=== PATIENT | female | born 1940 | race Caucasian/White ===

== ENCOUNTER → 2016-09-29 | Outpatient (CLI) | payer OTHER, BC ==
[~2016-09-29] MED LIST: AMR2 PO; BIOTCAP2 PO; CHOL100010 PO; CMD5 PO; COEN1CAP PO; CYAN100020 PO; ENOX80IN SQ; FIBER PO; LABE1TAB28 PO; MAGN400T6 PO; MELO15TA4 PO; MOME50SP5; PRAV80TA2 PO; SITA50TA5 PO
--- NOTE | 2016-09-29 16:16 | MAMMOGRAPHY REPORT ---
BILATERAL DIGITAL SCREENING MAMMOGRAM WITH CAD: 09/29/2016 CLINICAL HISTORY: Routine screening examination. TECHNIQUE: Bilateral CC, MLO and repeat right MLO views were obtained. Current study was also evalua marv with a Computer Aided Detection (CAD) system. COMPARISON: Comparison is made to exams dated: 09/27/2015 mammogram, 09/25/2014 mammogram, 09/22/2013 juanjo mogram, 09/21/2012 mammogram, 09/18/2011 mammogram, and 09/16/2010 mammogram - [facility]. BREAST COMPOSITION: There are scattered areas of fibroglandular density in both breasts. FINDINGS: The parenchymal pattern is similar to prior exams. There are scattered benign coarse calci fications. Moderate vascular calcification including numerous tiny calcified vessels. No new suspic ious mass, architectural distortion or cluster of suspicious microcalcifications is seen. IMPRESSION: ACR BI-RADS CATEGORY 1: NEGATIVE There is no mammographic evidence of malignancy. A 1 year screening mammogram is recommended. The pa tient will receive written notification of the results. Approximately 10% of breast cancers are not detected with mammography. A negative mammographic report should not delay biopsy if a clinically suggestive mass is present. Alyce Posadas M.D. ay/:09/29/2016 14:18:50 Contact Center Agent: Silva ALBA(Radha)(M), [facility] letter sent: Normal 1/2 BI-RADS Code: ACR BI-RADS Category 1: Negative
== END | disposition home or self-care (01) ==
LOC: C.MAMM 09:55
PROVIDERS: ATTEND Obstetrics & Gynecology
DX: Z12.31 Encounter for screening mammogram for malignant neoplasm of breast (principal)

== ENCOUNTER → 2016-10-20 | Outpatient (CLI) | payer OTHER, BC ==
[2016-10-20 17:24] LABS: BLOOD UREA NITROGEN 20 mg/dl (7-18); BUN/CREATININE RATIO 16.6 (10-20)
== END | disposition home or self-care (01) ==
LOC: C.LABBC 15:10
PROVIDERS: ATTEND Family Medicine
DX: Z01.812 Encounter for preprocedural laboratory examination (principal)

== ENCOUNTER → 2016-10-21 | Outpatient (CLI) | payer OTHER, BC ==
[~2016-10-21] MED LIST changes: +GADAVIST IV PRN
--- NOTE | 2016-10-21 15:44 | DIAGNOSTIC IMAGING REPORT ---
MRI OF THE ABDOMEN WITH AND WITHOUT CONTRAST CLINICAL HISTORY: Pancreatic lesion on recent CT. COMPARISON STUDY: CT of the abdomen and pelvis October 16, 2010 and renal ultrasound October 20, 2013. TECHNIQUE: Utilizing a 1.5 Shira magnet and dedicated coil, multiplanar, multiecho imaging of the abdomen was performed pre and postcontrast administration. Post contrast imaging was performed utilizing dynamic enhancement. Injection of 10 cc of Gadavist IV was uneventful. FINDINGS: There is no biliary or pancreatic ductal dilatation. Note is made of a 7 mm x 5 mm cystic lesion within the pancreatic body shown on axial image 19 of 33 and coronal image 14 of 34. This likely communicates within the main pancreatic duct. No enhancement of this lesion is identified. No additional pancreatic lesions are present. Note is made of a 9 mm hepatic dome cyst. There are no suspicious hepatic lesions. The spleen, adrenal glands and kidneys are normal. There is no hydronephrosis. There is no abdominal lymphadenopathy. No ascites is present. Caliber and wall thickness of visualized small and large bowel are normal. IMPRESSION: 7 mm x 5 mm cystic nonenhancing lesion within the pancreatic body with probable communication with the main pancreatic duct. This suggests a side branch intraductal papillary mucinous neoplasm (IPMN) and is low suspicion. This could be correlated with the prior imaging study to ensure that this reflects the abnormality in question. Electronically signed by: Domenico Wood M.D. 10/21/2016 3:42 PM Dictated Date/Time: 10/21/2016 11:01 AM
== END | disposition home or self-care (01) ==
PROVIDERS: ATTEND Family Medicine
DX: K86.9 Disease of pancreas, unspecified (principal)

== ENCOUNTER → 2017-09-08 | Outpatient (CLI) | payer OTHER, BC ==
[~2017-09-08] MED LIST changes: -BIOTCAP2 PO; +CLB/200 PO; +CMD/25 PO; -ENOX80IN SQ; -GADAVIST IV PRN; +LISI-461 PO; -MAGN400T6 PO; -MELO15TA4 PO
[2017-09-08 10:35] LABS: INR 1.1 (0.9-1.1)
== END | disposition home or self-care (01) ==
LOC: C.LAB 09:55
PROVIDERS: ATTEND Pain Medicine Interventional Pain Medicine
DX: Z51.81 Encounter for therapeutic drug level monitoring (principal); Z79.01 Long term (current) use of anticoagulants

== ENCOUNTER → 2017-11-17 | Outpatient (CLI) | payer OTHER, BC ==
[~2017-11-17] MED LIST changes: +ASCA500 PO; -CHOL100010 PO; +CHOL2000 PO; -CMD5 PO; +FIBER GUMMY PO; -FIBER PO; -LISI-461 PO; +LSN25 PO; -MOME50SP5; +MOME6000; +SACC250C11 PO; +VITBC PO; +WARF-246 PO
--- NOTE | 2017-11-17 12:08 | DIAGNOSTIC IMAGING REPORT ---
CHEST 2 VIEWS ROUTINE CLINICAL HISTORY: Preoperative chest COMPARISON STUDY: 08/14/2015 FINDINGS: The cardiac and mediastinal contours remain stable. There is no failure. There is no lobar consolidation. On the lateral view, there is a stable retrosternal opacity likely representing focal fat or scarring.[ There is no failure. There are no pleural effusions. IMPRESSION: No active disease in the chest. Electronically signed by: Neftaly Gastelum M.D. 11/17/2017 12:07 PM Dictated Date/Time: 11/17/2017 12:05 PM
[2017-11-17 12:43] LABS: INR 2.5 (0.9-1.1); PTT PATIENT 34.3 SECONDS (21.0-31.0)
[2017-11-17 13:05] LABS: BASO % 0.3 %; BASO ABS # 0.01 K/uL (0-0.2); EOS % 2.6 %; HEMATOCRIT 39.3 % (37-47); HEMOGLOBIN 12.5 g/dL (12.0-16.0); IG# 0.01 K/uL (0.00-0.02); LYMPH % 23.8 %; LYMPH ABS # 0.93 K/uL (1.2-3.4); MEAN CELL VOLUME 96.6 fL (80-100); MEAN CORPUSCULAR HEMOGLOBIN 30.7 pg (25-34); MEAN CORPUSCULAR HGB CONC 31.8 g/dl (32-36); MEAN PLATELET VOLUME 11.1 fL (7.4-10.4); MONO % 10.5 %; MONO ABS # 0.41 K/uL (0.11-0.59); NEUT % 62.5 %; NEUT ABS # 2.45 K/uL (1.4-6.5); PLATELET COUNT 126 K/uL (130-400); RED CELL DISTRIBUTION WIDTH CV 14.4 % (11.5-14.5); RED CELL DISTRIBUTION WIDTH SD 50.9 fL (36.4-46.3); WHITE BLOOD COUNT 3.91 K/uL (4.8-10.8)
[2017-11-17 13:45] LABS: ALBUMIN 3.7 gm/dl (3.4-5.0); ALKALINE PHOSPHATASE 58 U/L (45-117); ALT/SGPT 38 U/L (12-78); AST/SGOT 25 U/L (15-37); BLOOD UREA NITROGEN 18 mg/dl (7-18); CALCIUM 8.9 mg/dl (8.5-10.1); CARBON DIOXIDE 26 mmol/L (21-32); CREATININE 1.07 mg/dl (0.60-1.20); GLUCOSE 185 mg/dl (70-99); SODIUM 140 mmol/L (136-145)
== END | disposition home or self-care (01) ==
LOC: C.CPL 13:15
PROVIDERS: ATTEND Orthopaedic Surgery
DX: Z01.810 Encounter for preprocedural cardiovascular examination (principal); Z01.811 Encounter for preprocedural respiratory examination; Z01.812 Encounter for preprocedural laboratory examination; I44.0 Atrioventricular block, first degree

== ENCOUNTER → 2017-11-17 | Outpatient (CLI) | payer OTHER, BC ==
--- NOTE | 2017-11-17 09:24 | DIAGNOSTIC IMAGING REPORT ---
R KNEE 2 VIEWS CLINICAL HISTORY: Osteoarthritis. Preoperative study. COMPARISON STUDY: No previous studies for comparison. FINDINGS: The right knee was x-rayed with a sizing ball, use for preoperative planning. There are advanced osteoarthritic changes involving the medial joint compartment. There are dorsal patellar spurs. There are no acute fractures. IMPRESSION: 1. No acute fractures 2. Osteoarthritis Electronically signed by: Neftaly Gastelum M.D. 11/17/2017 9:23 AM Dictated Date/Time: 11/17/2017 9:22 AM
== END | disposition home or self-care (01) ==
LOC: C.RDSM 12:24
PROVIDERS: ATTEND Physician Assistant
DX: Z01.818 Encounter for other preprocedural examination (principal); M17.11 Unilateral primary osteoarthritis, right knee

== ENCOUNTER 2017-12-09 05:17 | Inpatient (IN) | payer OTHER, BC ==
[2017-11-10 10:44] VITALS: BMI 36.0
--- NOTE | 2017-11-16 12:14 | PAT Medication Instructions ---
Service Date Nov 16, 2017. Current Home Medication List Ascorbic Acid (Vitamin C), Unknown Dose PO QAM Celecoxib (CeleBREX), 1 CAP PO QAM Cholecalciferol (Vitamin D3), 1 CAP PO QAM Coenzyme Q10 (Ubidecarenone) (Co Q10), 1 MG PO QPM Cyanocobalamin (Vitamin B12), 1 TAB PO QAM Glimepiride (Glimepiride), 1 TAB PO QAM Labetalol (Normodyne), 200 MG PO BID Lisinopril (Lisinopril), 1 TAB PO QAM Mometasone Furoate (Nasal) (Mometasone Furoate), 1 DOSE NA UD PRN for Nasal Congestion Pravastatin Sodium (Pravastatin Sodium), 80 MG PO QPM Saccharomyces Boulardii (Probiotic), Unknown Dose PO QAM Sitagliptin-Metformin Hcl (Janumet), 1 TAB PO BID Vitamin B Complex (Vitamin B Complex), 1 TAB PO QAM Warfarin Sod (Coumadin), 1 TAB PO 2XWK Warfarin Sodium (Warfarin Sodium), 1 TAB PO 5XWK [Fiber Gummy], 1 DOSE PO QAM Medication Instructions For Your Scheduled Surgery - Check with surgeon and prescribing physician for instructions: Warfarin Sod (Coumadin), 1 TAB PO 2XWK Warfarin Sodium (Warfarin Sodium), 1 TAB PO 5XWK - Hold the following medications 2 weeks prior to surgery: Coenzyme Q10 (Ubidecarenone) (Co Q10), 1 MG PO QPM - Check with surgeon for instructions: Celecoxib (CeleBREX), 1 CAP PO QAM - Hold the following medications the morning of surgery: Ascorbic Acid (Vitamin C), Unknown Dose PO QAM Cholecalciferol (Vitamin D3), 1 CAP PO QAM Cyanocobalamin (Vitamin B12), 1 TAB PO QAM Glimepiride (Glimepiride), 1 TAB PO QAM Lisinopril (Lisinopril), 1 TAB PO QAM Saccharomyces Boulardii (Probiotic), Unknown Dose PO QAM Sitagliptin-Metformin Hcl (Janumet), 1 TAB PO BID Vitamin B Complex (Vitamin B Complex), 1 TAB PO QAM [Fiber Gummy], 1 DOSE PO QAM - Take the following medications the morning of surgery with a sip of water: Mometasone Furoate (Nasal) (Mometasone Furoate), 1 DOSE NA UD PRN for Nasal Congestion (if needed) Labetalol (Normodyne), 200 MG PO BID - Take the following medications as scheduled the night before surgery: Sitagliptin-Metformin Hcl (Janumet), 1 TAB PO BID Pravastatin Sodium (Pravastatin Sodium), 80 MG PO QPM Mometasone Furoate (Nasal) (Mometasone Furoate), 1 DOSE NA UD PRN for Nasal Congestion ( if needed) Labetalol (Normodyne), 200 MG PO BID If you have any questions please call us at [phone] or [phone] or [phone]
[2017-11-17 11:54] VITALS: BMI 36.0
--- NOTE | 2017-11-17 14:33 | History and Physical ---
History & Physical Date of Service Nov 17, 2017. History & Physical CHIEF COMPLAINT: Right knee pain. HISTORY OF PRESENT ILLNESS: This 77-year-old female presents to the clinic today for her preoperative history and physical. The patient complains of a 1+ year history of persistent right knee pain and states she has failed conservative treatment with physical therapy, steroid injections and viscosupplementation injections. The patient complains of significant medial joint line tenderness when she ascends stairs or walks for a long period of time. She states that the pain seems to subside slightly when she rests and compresses the area. 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 PAST SURGICAL HISTORY: Hysterectomy, umbilical hernia repair and a punch biopsy. PAST MEDICAL HISTORY: Type 2 diabetes, hyperlipidemia, COPD, hypertension, cervical cancer, renal calculi and pulmonary embolism. FAMILY HISTORY: Positive for stroke and diabetes. ALLERGIES: THE PATIENT STATES SHE HAS AN ALLERGY TO PENICILLIN. She states that as a child, she developed a rash from taking penicillin. States she has had penicillin products in the past without any reaction. CURRENT MEDICATIONS: Biotin 1 tab unknown dosage daily, Celebrex 200 mg oral capsule daily, CoQ10 100 mg oral capsule daily, glyburide 5 mg oral tablet 1/2 tablet daily, Janumet 50 mg/1000 mg oral tablet 1 tab twice daily, labetalol 200 mg oral tablet twice daily, lisinopril 2.5 mg oral tablet daily Perdiem fiber caplet 1 tab unknown dosage daily, pravastatin 80 mg oral tablet 1 tab daily, vitamin B12 1 tab unknown dosage daily, vitamin D3 1000 international unit oral tablet 1 tab daily and warfarin 5 mg oral tablet 1 tab daily. SOCIAL HISTORY: The patient states she consumes approximately 2 alcoholic beverages per day. She denies smoking or illicit drug use. Previously, she was a smoker and quit in 1978. She smoked approximately half pack a day for a 10 year period. PHYSICAL EXAMINATION: Skin: The patient's skin is normal in appearance with no open skin lesions or discharge. Eyes: Pupils are equal and reactive to light and accommodating. Extraocular movements are intact. Throat: Posterior oropharynx clear with absence of edema, erythema or exudate. Cardiovascular exam: The patient has a regular rate and rhythm with no murmurs or gallops appreciated. Lungs: Auscultation of lung rojas reveals clear breath sounds throughout with no wheezing, rales or rhonchi. Abdomen is obese, nondistended, nontender with normoactive bowel sounds. Extremities: Right knee, the patient is able to extend to 10 degrees and flex to 100 degrees. She has medial and lateral joint line tenderness when the knee is palpated in a flexed position audible crepitation with active passive range of motion. A nonmobile right patella due to arthritic changes within the patellofemoral joint. Otherwise, her calf is soft and supple, nontender to palpation. She is neurovascularly intact in the right lower extremity. Neurological exam: Cranial nerves 2-12 are intact with no motor or sensory deficit. Psychological/general exam: The patient is alert and oriented x3 with proper grooming and hygiene. DIAGNOSES: Right knee osteoarthritis. PROCEDURE: Right total knee arthroplasty. PLAN: The patient is scheduled to undergo this procedure with Dr. Mikey Merrill at the [facility] as an inpatient on December 11, 2017. Risks and complications of the surgery such as infection, bleeding, pain , scarring, nerve and blood vessel damage, weakness, wound problems, stiffness, incomplete relief of symptoms, heart attack, stroke, , hardware failure, loosening, wear, fracture, blood clots and embolism were explained to the patient by Dr. Merrill at her visit on October 29. The patient understood the risks. Informed consent to perform the procedure was obtained. We will need to obtain preoperative medical clearance from the patient's primary care provider, Dr. Anne, as well as clearance from her pulmonology specialist, David Pantoja PA-C. in addition to these clearances we will obtain a CBC with differential, complete metabolic panel, PT, INR, PTT, blood type and screen, urinalysis, urine culture, EKG, chest x-ray. Hemoglobin A1c and a nasal swab for MRSA. The patient states she has her preanesthesia clearance appointment later this morning. We will obtain the necessary testing at that time. The patient states she has a walker that she will bring with her on the day of surgery. I advised her that we will provide her with prescriptions for an opioid analgesic for pain control. We will have her continue her Celebrex, but to increase it to twice daily for 30 days postoperatively. She states she does have intact strength Tylenol at home that she will use postoperatively for pain control. We received paperwork from Mr. Pantoja regarding the patient's warfarin therapy. She will be bridged 3 days before with Lovenox and then 3 days afterward and continue her p.o. warfarin as indicated by the paperwork that he provided. The patient states she will most likely request to do in-home therapy with [facility] for 2 weeks and then will most likely continue on an outpatient basis at [facility] in [place], [place]. I advised her at her 2-week followup we will provide her with an order for outpatient therapy. The patient was given information about taking antibiotics prior to dental procedures. She was given information about lectures offered in regards to joint replacement at [facility]. She states she does not need a handicap placard because she already has one for her vehicle. I advised her that she will speak with the social work manager and the liaison from [facility] in regards to the discharge process. The patient verbalized understanding of all information provided during today's visit. She thanked us for the care she has received and states if she has questions or concerns that should arise prior to her surgery date, she will contact the clinic.
[~2017-12-09] VITALS: Ht 165.1 cm; Wt 99.9 kg
[2017-12-09] VITALS (8 sets, daily range): BP systolic 117–151; BP diastolic 71–83; PULSE 65–84; TEMP 36.4–37; O2SAT 94–98; Ht 165.1 cm; Wt 99.9 kg
[2017-12-09 05:55] LABS: INR 1.3 (0.9-1.1)
[2017-12-09] MEDS ORDERED: DEXAMETHASONE 4 MG TAB PO SCH (06:00)
[2017-12-09] MEDS ORDERED: FAMOTIDINE 20 MG TAB PO SCH (06:00)
[2017-12-09] MEDS ORDERED: TRAMADOL HCL 50 MG TAB PO SCH (06:00)
[2017-12-09] MEDS ORDERED: ROPIVACAINE 5MG/ML 30 ML 150 MG, BUPIVACAINE 0.5% MPF INJ 30 ML, EpINEphrine HCL INJ 0.... INFIL SCH ×8 (06:00)
[2017-12-09] MEDS ORDERED: SCOPOLAMINE 1.5 MG TDSY TD SCH (06:00)
[2017-12-09] MEDS ORDERED: LACTATED RINGER'S 1000ML 500 ML IV SCH (06:00)
[2017-12-09] MEDS ORDERED: CEFAZOLIN 2000MG IV PUSH 15 ML IV SCH (06:00)
[2017-12-09] MEDS ORDERED: ACETAMINOPHEN 500 MG TAB PO SCH (06:00)
[2017-12-09] MEDS ORDERED: CeleBREX 200 MG CAP PO SCH (06:00)
[2017-12-09] MEDS ORDERED: LACTATED RINGER'S 1000ML 1,000 ML IV SCH ×2 (06:00)
[2017-12-09] MEDS ORDERED: BUPIVACAINE 0.5 % 5 MG/1 ML PF 10ML VIAL ONE (06:26)
[2017-12-09] MEDS ORDERED: BUPIVACAINE 0.25% 30 ML VIAL ONE (06:27)
[2017-12-09] MEDS ORDERED: DEXAMETHASONE SOD INJ 4 MG/ML VIAL ONE (06:27)
[2017-12-09] MEDS ORDERED: EpINEphrine INJ 1MG/ML AMP 1 MG/ML AMP ONE (06:27)
[2017-12-09] MEDS ORDERED: MIDAZOLAM HCL 1 MG/ML 2ML VIAL ONE (06:50)
[2017-12-09] MEDS ORDERED: FENTANYL CITRATE INJ 50 MCG/1 ML 2 ML VIAL ONE (06:50)
--- NOTE | 2017-12-09 06:50 | History & Physical Bridge Note ---
H&P Re-Evaluation Bridge Note: I have examined the patient, reviewed the History & Physical and in the interval since the performance of the History & Physical I have noted the following changes of clinical significance: No changes noted
[2017-12-09] MEDS ORDERED: ORTHO JOINT ANESTHETIC ONE (06:51)
[2017-12-09] MEDS ORDERED: POVIDONE-IODINE OP SOLN 30 ML BTL ONE (06:51)
[2017-12-09] MEDS: TRANEXAMIC ACID INJ 1,000 MG x 2 Bags IV SCH ×4 (07:05→12:58)
[2017-12-09] MEDS ORDERED: EpHEDrine SULFATE INJ 50 MG/ML AMP IV PRN (08:15)
[2017-12-09] MEDS ORDERED: FENTANYL CITRATE INJ 50 MCG/1 ML 2 ML VIAL IV PRN (08:15)
[2017-12-09] MEDS ORDERED: ATROPINE SULFATE 0.1 MG/ML 5ML SYR IV PRN (08:15)
[2017-12-09] MEDS ORDERED: ONDANSETRON INJ 2 MG/ML 2 ML VIAL IV PRN ×2 (08:15→09:30)
[2017-12-09] MEDS ORDERED: PROMETHAZINE HCL INJ 6.25 MG in SODIUM CHLORIDE 0.9% 50ML 50 ML IV PRN (08:15)
[2017-12-09] MEDS ORDERED: PROPOFOL IV EMULSION 10 MG/ML 20 ML VIAL ONE (08:35)
[2017-12-09] MEDS ORDERED: LABETALOL HCL IV 5 MG/ML 20ML ONE (08:51)
--- NOTE | 2017-12-09 09:10 | [facility] Post Operative Brief Note ---
Immediate Operative Summary Operative Date Dec 09, 2017. Pre-Operative Diagnosis Right Knee Osteoarthritis Post-Operative Diagnosis Same as preop Procedure(s) Performed Right Total Knee Arthoplasty Surgeon Dr. Merrill Hemodialysis Technician Surgeon(s) Ivan House PA-C Estimated Blood Loss 50 ml Findings Consistent with Post-Op Diagnosis Fluids (cc crystalloids) 900 cc Specimens A. Right Knee Bone and Tissue Drains None Anesthesia Type MAC Spinal Regional Complication(s) none Disposition Accompanied Pt To Recover: no Disposition: Recovery Room / PACU
--- NOTE | 2017-12-09 09:27 | [facility] Operative Report ---
Operative Report Operative Date Dec 09, 2017. Pre-Operative Diagnosis Right Knee Osteoarthritis Post-Operative Diagnosis Same as preop Procedure(s) Performed Right Total Knee Arthoplasty Surgeon Dr. Merrill Counter Maker Surgeon(s) Ivan House PA-C Estimated Blood Loss 50 ml Fluids 900 cc Specimens A. Right Knee Bone and Tissue Drains None Anesthesia Type MAC Spinal Regional Complication(s) none Disposition no Recovery Room / PACU Description of Procedure I was present during the entire case, assisting with wound closure and dressing application. Please see Dr. Merrill note for specifics of the case. I attest to the content of the Intraoperative Record and any orders documented therein. Any exceptions are noted below.
[2017-12-09] MEDS ORDERED: MoRPHine SULFATE 2 MG/ML CARP IV PRN (09:30)
[2017-12-09] MEDS ORDERED: OXYCODONE HCL IR 5 MG TAB (IMMEDIATE RELEASE) PO PRN (09:30)
[2017-12-09] MEDS ORDERED: WARFARIN SOD 10 MG TAB PO ONE ×2 (09:30→21:00)
[2017-12-09] MEDS ORDERED: METOCLOPRAMIDE HCL INJ 5 MG/ML 2 ML VIAL IV PRN (09:30)
[2017-12-09] MEDS ORDERED: FLUTICASONE PROPIONATE NA SPR 16 GM BTL PRN (09:30)
[2017-12-09] MEDS ORDERED: ALUMINUM/MAGNESIUM/SIMETH (MAALOX MAX) 30 ML UDC PO PRN (09:30)
[2017-12-09] MEDS ORDERED: MAGNESIUM HYDROXIDE SUSP 30 ML UDC PO PRN (09:30)
[2017-12-09] MEDS ORDERED: DiphenhydrAMINE HCL 50 MG/ML VIAL IV PRN (09:30)
--- NOTE | 2017-12-09 10:08 | DIAGNOSTIC IMAGING REPORT ---
R KNEE 1 OR 2 VIEWS ROUTINE CLINICAL HISTORY: AP/LATERAL IN PACU RIGHT KNEE pain COMPARISON: None. DISCUSSION: Anatomic alignment post total right knee arthroplasty. Good contact between prosthetic and underlying bone. Expected soft tissue postoperative changes IMPRESSION: Anatomic alignment post total right knee arthroplasty. The above report was generated using voice recognition software. It may contain grammatical, syntax or spelling errors. Electronically signed by: Gage Diaz M.D. 12/09/2017 10:07 AM Dictated Date/Time: 12/09/2017 10:06 AM
--- NOTE | 2017-12-09 10:41 | Anesthesiology Progress Note ---
Anesthesia Post Op Note Date & Time Dec 09, 2017 at 10:40 Vital Signs Pain Intensity: 0 Vital Signs Past 12 Hours Date Time Temp Pulse Resp B/P (MAP) Pulse Ox O2 Delivery O2 Flow Rate FiO2 12/09/17 10:35 72 16 154/72 97 Nasal Cannula 2 12/09/17 10:25 36.3 62 15 138/73 97 Nasal Cannula 2 12/09/17 10:15 63 13 146/75 97 Nasal Cannula 2 12/09/17 10:05 73 19 126/83 96 Nasal Cannula 2 12/09/17 09:55 66 15 139/80 96 Nasal Cannula 2 12/09/17 09:45 67 14 153/83 96 Nasal Cannula 2 12/09/17 09:35 80 17 144/100 97 Nasal Cannula 2 12/09/17 09:25 36.2 76 12 144/83 95 Nasal Cannula 2 12/09/17 05:47 37.0 84 18 151/83 94 Room Air Notes Mental Status: alert / awake / arousable, participated in evaluation Pt Amnestic to Procedure: Yes Nausea / Vomiting: adequately controlled Pain: adequately controlled Airway Patency, RR, SpO2: stable & adequate BP & HR: stable & adequate Hydration State: stable & adequate Neuraxial Anesthesia: was administered, sensory block is resolving Anesthetic Complications: no major complications apparent
--- NOTE | 2017-12-09 13:20 | Discharge Instructions ---
Discharge Instructions Date of Service Dec 09, 2017. Admission Reason for Admission: Right Knee Osteoarthritis Discharge Discharge Diagnosis / Problem: Right knee osteoarthritis Discharge Goals Goal(s): Decrease discomfort, Improve function, Increase independence Activity Recommendations Activity Limitations: as noted below Lifting Limitations: until after follow-up appointment Exercise/Sports Limitations: until after follow-up appointment May Resume Sexual Activity: after one week Shower/Bathe: tomorrow Driving or Machine Use: No driving until cleared by animal care specialist Weightbearing Status: Right weightbearing (as tolerated with aide of walker and knee immobilizer for first 48 hrs post op) . Instructions / Follow-Up Instructions / Follow-Up Post-operative Instructions Dear Patient and Family/Friends, Before you are discharged from the hospital, it is important to know what to expect when you get home after surgery. To that end, we have created this sheet of discharge instructions which covers many commonly asked questions. Make sure you go through this sheet in its entirety with your nurse before you are discharged. Please note that we will go over the specifics of your surgery and recovery when you return for your first post-operative visit. Sincerely, Dr. Merrill Pain Expect to be in a fair amount of pain after surgery. Remember, our goal is not to eliminate your pain, but to make it tolerable. It is a good idea to stay ahead of your pain by taking the medications you were prescribed once you get home. Typically, the pain starts improving 3-7 days after surgery. You should start weaning off the narcotic pain medication (oxycodone, hydrocodone, hydromorphone, morphine) as soon as your pain improves. Please call our office if your pain is not adequately controlled. Ice Ice your operative site at least 5 times a day for 15-30 minutes at a time. Make sure you have a thin cloth between the ice or cooling unit and your skin to prevent restrepo bite. This is especially important if you received a nerve block. Continue icing your operative site for the first 5-7 days after surgery , then as needed. Diet/Nausea/Vomiting Start by drinking clear liquids and eating crackers. If you can tolerate this, then you may resume your normal diet. If you feel nauseated or vomit, take Zofran/ondansetron (if prescribed). Please call our office if you have intractable nausea or vomiting, or, if after hours, you may go to the Emergency Room for help. Constipation Constipation is a common side effect of narcotic pain medication. If you have not had a bowel movement within 2 days after surgery, we recommend purchasing an over the counter laxative such as Milk of Magnesia, Dulcolax, or Miralax from a local pharmacy, and taking it as instructed. Call our clinic if any questions. Slings and Braces If you were placed in a sling or brace, it must be worn at all times, including sleep. You may remove your sling or brace for physical therapy, home exercises , and showering. The length of time you will be in your brace and range of motion restrictions depends on what surgery you had; these details will be reviewed at your first post-operative appointment. Nerve block The anesthesia team sometimes places a nerve block to help with post-operative pain control. This results in significant numbness and inability to move the extremity. The nerve block usually wears off in 8-12 hours, but sometimes can last up to 24 hours. Please call our office if you are still unable to move your extremity after 24 hours, unless you received a pain pump to take home. Nerve blocks typically wear off quickly, so start taking pain medication as soon as you start feeling soreness near your surgical site. Weight bearing and Range of Motion. Do not bear any weight through your operative extremity immediately after surgery. If you had upper extremity surgery, do not lift anything with that arm. If you are in a knee brace, keep it locked in place until your follow-up. We will discuss your weight bearing, range of motion, and lifting restrictions in detail at your first post-operative appointment. Continuous Passive Motion (CPM) Machine If you were prescribed a CPM machine, it will start after your first post- operative appointment, at which time we will give you instructions on the range of motion settings and duration of treatment Physical therapy You will be given a prescription for physical therapy or occupational therapy at your first post-operative appointment. Typically, patients start therapy within 1 week of surgery Wound care and showering We will inspect your wound at your first post-operative visit, and may do a dressing change at that time. Most patients will be in a water-proof dressing that is removed 14 days after surgery. It is normal to see some dried blood on the dressing. Do not remove your dressing, paper strips or sutures yourself unless you are given permission. Showering is allowed the day after surgery. Do not scrub or remove any dressings. The wound should not be submerged underwater (i.e. in a bathtub or pool) until 4 weeks after surgery MEY stockings If you were given white stockings, these are to be worn at all times except to shower (on both legs) for the first 2 weeks after surgery. Driving You may not drive while taking narcotic pain medication or while in a cast, splint, sling or brace. You, the patient, need to make the final determination about when you are safe to drive, however, the earliest you may consider driving after surgery is below: Hand/Wrist/Elbow Surgery: 3 days Shoulder Surgery: 2 weeks Hip,/Knee/Ankle Surgery: 4 weeks Fracture repair: 6 weeks Return to Work Your return to work depends on what surgery was done and what type of work you do. Please bring any paperwork your employer needs completed to your first post -operative visit. Also, bring a description of your job duties, as this helps us to understand what risks you may face at work. Travel Avoid long distance travel (greater than 1 hour) in airplanes and cars for the first 6 weeks after surgery. If you must travel, you need to have a Doppler ultrasound done before you travel to rule out a blood clot in your legs. Follow-up You should have a follow-up appointment already scheduled 1-2 days after surgery. If not, please contact our office to make this appointment before you leave the hospital. When to call the office It is normal to have swelling and bruising in the limb that was operated on. This will improve with time. It is also normal to have fevers for the first 2 days after surgery. Reasons you should call your doctor include: Uncontrolled pain; Nausea, vomiting, or constipation that does not improve with medication; Fevers over 101.5, chills, sweats; Drainage or bleeding from the wound; Foul odor; Spreading areas of redness; Any other concerns Current Hospital Diet Patient's current hospital diet: Diabetes Type 2 Diet Discharge Diet Recommended Diet: Diabetes Type 2 Diet Procedures Procedures Performed: Right Total Knee Arthoplasty Pending Studies Studies pending at discharge: no Laboratory Results Hemoglobin A1c Test 11/17/17 11:11 Range/Units Estimated Average Glucose 126 mg/dl Hemoglobin A1c 6.0 H 4.5-5.6 % Medical Emergencies . Who to Call and When: Medical Emergencies: If at any time you feel your situation is an emergency, please call 911 immediately. . Non-Emergent Contact Non-Emergency issues call your: Primary Care Provider Call Non-Emergent contact if: you have a fever, temperature is above 101.5, your pain is not controlled, your pain is worsening, wound has increased drainage, you have any medication questions . "Provider Documentation" section prepared by Ivan House. . Wine Pasteurizer Recommendations Wine Pasteurizer Recommendations: We will discharge you home with a prescription for Lovenox 40 mg to be injected SQ on Wednesday and Wednesday. During that time you will also be taking your regularly scheduled Coumadin dosage. On Wednesday you will need INR checked with results sent to our office and to the coumadin clinic. Your goal INR is range 1.8-2.2 for 6 wks post operatively. [place] Drug Monitoring Program Search Results: patient reviewed within database, no issues identified, see additional documentation
--- NOTE | 2017-12-09 13:28 | OPERATIVE REPORT ---
DATE OF OPERATION: 12/09/2017 PREOPERATIVE DIAGNOSIS: Right knee osteoarthritis. POSTOPERATIVE DIAGNOSIS: Right knee osteoarthritis. OPERATION PERFORMED: Right total knee arthroplasty. SURGEON: Mikye Merrill MD SCAFFOLDING HELPER: Sidney House. ESTIMATED BLOOD LOSS: 50 mL. IV FLUIDS: 900 mL crystalloid. SPECIMENS: Bone and soft tissue contents from the right knee. COMPLICATIONS: None. IMPLANTS: 1. Pantoja and Nephew size 5 Oxinium femoral component, posterior stabilized. 2. Pantoja and Nephew size 3 tibial base plate. 3. Posterior stabilized polyethylene liner, 10 mm thickness. 4. Oval-shaped patella size 32. INDICATIONS: Ms. Hunt is a 77-year-old female with right knee osteoarthritis that has been refractory to conservative management. She has a medical history significant for pulmonary embolism on chronic Coumadin. X-rays reveal end-stage [id number] osteoarthritis in the right knee. After reviewing all the risks and benefits of surgery, alternatives to surgery and expected outcome, she elected to proceed. All questions were answered. Informed consent was signed. OPERATIVE FINDINGS: The knee showed extensive degenerative osteoarthritis bone on bone. A posterior stabilized total knee arthroplasty was performed. DESCRIPTION OF PROCEDURE: The patient was identified in the preoperative holding area where her surgical site was marked. She was given an adductor canal block and a spinal anesthetic by anesthesiologist and then brought back to the main operating room where she was placed on the operating room table and IV sedation was administered. All bony prominences were padded. Perioperative antibiotics were administered as well as tranexamic acid. She was prepped and draped in the normal sterile fashion. Prior to incision, a multidisciplinary timeout was called. All in the room were in agreement. Examination under anesthesia revealed the patient to have approximately 15-degree flexion contracture. Her collateral ligaments were stable. The leg was exsanguinated with an Esmarch bandage. Tourniquet was inflated to 250 mmHg. A 14 cm long incision was carried down from the quadriceps tendon over the patella ending 1 cm medial to the tibial tubercle. We dissected down through subcutaneous tissues to the level of the fascia. Full thickness flaps were raised above the fascia. Arthrotomy was then made along the medial border of the patellar tendon extending along the medial aspect of the patella and up into the quadriceps tendon. Synovitis in the suprapatellar pouch was excised with cautery. Half of the fat pad was excised with cautery. Medial release was performed with electrocautery. The patella was everted and clipped. It measured to a 24 mm thickness. I then resected 9 mm with the saw. We sized her patella to a size 32. We then drilled the 3 holes placed the trial button which came back at size 24 mm thickness, which we are very happy with. The patellar trial was then removed. The patella was everted and the knee was flexed. Notch osteophytes were removed as well as the cruciate ligaments with electrocautery. We then placed our intramedullary drill followed by the distal femoral cutting guide. We resected 11 mm of bone off of her distal femur with the alignment guide set at 5 degrees of valgus. Next, the tibia was exposed and the tibial cutting guide was placed. This was set for a 9 mm resection off of the lateral tibial plateau. Once the alignment guide was properly positioned, it was pinned in place and the proximal tibial cut was made without difficulty. At this point, the knee was brought into full extension. We checked our extension gap, which was slightly tight medially. However, we had adequate space. I then placed a lamina egg separator and excised the medial meniscus. We took some osteophytes off of the medial aspect of the tibia as well as performed slightly more release of her medial soft tissues and then the extension gap was rectangular. Next, the knee was flexed back up. The tibia sized to a size 3. The femur was then sized to a size 5. The epicondylar axis and Gale's line were marked. We then drilled our guide pins with 3 degrees of external rotation off of the guide and placed our 5-in-1 cutting block down into position and pinned it there. All 5 cuts were then made without difficulty. The box cutting guide was then placed and the box was first reamed and then tamped out with the box osteotome. The femoral trial was then placed. The tibial trial was then placed in an externally rotated position and pinned, and proximal tibia was punched. We then placed our 10 mm thickness polyethylene and brought the knee through a full range of motion, where it was stable to varus and valgus throughout and she achieved full extension. Next, the trial components were removed. The bony surfaces were irrigated. The periarticular injection was placed into the posterior capsule using 24 mL posteriorly. The remainder of the injection was then injected into the periosteum, the arthrotomy and the subcutaneous tissues. Great care was taken to avoid the neurovascular bundle and the peroneal nerve with the injection. At this point, the cement was mixed and the femoral component was impacted down into position. Excess cement was excised. The tibia was then subluxated forward taking great care to protect the femoral component. The tibial component was then impacted into position. Excess cement was removed. The polyethylene liner for the 10 mm thickness poly was placed. We checked to ensure the locking mechanism engaged, which it had. The knee was then brought out in full extension and held there until the cement had cured. The patellar component was also cemented into position at this point and clamped. At this point, the knee was irrigated with Betadine followed by normal saline. The arthrotomy was then closed using interrupted 0 Vicryl sutures around the patella and #1 Ethibond in a running fashion for the patellar tendon and quadriceps tendon closures. The patellar tracking was checked and was excellent. The subcutaneous tissues were closed with 0 Vicryl sutures. The deep dermis was closed with running 2-0 Quill. 3-0 Monocryl was placed subcuticularly in the skin followed by Steri-Strips and a Silverlon bandage. A compressive dressing was then placed. The patient had her sedation lifted and was transferred to the recovery room in stable condition. POSTOPERATIVE COURSE: The patient will be admitted overnight for pain control and to work with occupational therapy and for monitoring. We will plan on discharging home tomorrow. She will receive double her normal home Coumadin dose tonight. She will then go back on her normal Coumadin dose of 5 mg tomorrow. We will bridge her with 40 mg of Lovenox starting tomorrow morning until Wednesday when her INR is checked at the Coumadin clinic. She is weightbearing as tolerated. X-rays are pending in the PACU. I attest to the content of the Intraoperative Record and any orders documented therein. Any exception s are noted below.
[2017-12-09] MEDS: ACETAMINOPHEN 500 MG TAB PO SCH ×2 (14:09→21:48)
[2017-12-09] MEDS: FERROUS GLUCONATE 324 MG TAB PO SCH ×2 (14:10→17:51)
[2017-12-09] MEDS: SODIUM CHLORIDE 0.9% 1000ML 1,000 ML IV SCH ×2 (14:10→16:47)
[2017-12-09] MEDS ORDERED: TRANEXAMIC ACID INJ 1,000 MG in SODIUM CHLORIDE 0.9% 100ML 100 ML IV SCH (15:30)
[2017-12-09] MEDS ORDERED: RXC5 PO (15:47)
[2017-12-09] MEDS ORDERED: ENOX40IN SQ (15:47)
[2017-12-09] MEDS: CHECK SCOPOLAMINE PATCH PLACEMENT SCH ×2 (16:00→23:46)
[2017-12-09] MEDS ORDERED: CARBOHYDRATES FOR HYPOGLYCEMIA PO PRN (16:15)
[2017-12-09] MEDS ORDERED: DEXTROSE 50% 50 ML SYR IV PRN (16:15)
[2017-12-09] MEDS ORDERED: GLUCOSE 10 TABS/TUBE PO PRN (16:15)
[2017-12-09] MEDS ORDERED: GLUCOSE 40% GEL 15 GM TUBE PO PRN (16:15)
[2017-12-09] MEDS ORDERED: HydrALAZINE HCL 20 MG/ML VIAL IV. PRN (16:15)
[2017-12-09] MEDS ORDERED: GLUCAGON FOR INJ 1 MG VIAL SQ PRN (16:15)
--- NOTE | 2017-12-09 16:26 | Medical Consult ---
Consultation Date of Consultation: Dec 09, 2017. Attending Physician: Mikey Merrill MD Reason for Consultation: Medical management History of Present Illness This is a 77 y/o female with a history of HTN, HLD, DM II, h/o unprovoked PE, CKD stage III, and uterine cancer s/p radiation and then total hysterectomy who presents s/p right TKA with Dr. Merrill on 12/09 for medical management. The patient reports feeling well postoperatively. She denies any pain currently. She does report some numbness in her RLE, but this is improving. She is tolerating a PO diet and voiding on her own without difficulty. She has not yet passed gas or had a bowel movement postoperatively. The patient denies fevers, chills, sweats, chest pain, palpitations, claudication, cough, wheezing , shortness of breath, nausea, vomiting, abdominal pain, dysuria, hematuria, urinary retention, paralysis, weakness. Past Medical/Surgical History Medical Problems: (1) Cough Status: Acute (2) Dyspnea Status: Acute (3) Subtherapeutic international normalized ratio (INR) Status: Acute HTN HLD DM II H/o unprovoked PE on lifelong anticoagulation CKD stage III Uterine cancer s/p radiation, total hysterectomy Surgical history: Total hysterectomy Hernia repair Family History Diabetes mellitus Lymphoma Myocardial infarction Stroke Social History Smoking Status: Former Smoker (quit 1978) Smokeless Tobacco Use: No Alcohol Use: socially (2 glasses of wine per day) Drug Use: none Marital Status: Housing Status: lives with significant other Occupation Status: retired Allergies Coded Allergies: Nickel (Verified Allergy, Mild, CONTACT DERMATITIS, 12/09/17) PT REPORTS NICKEL TURNS SKIN GREEN - DENIES CONTACT DERMATITIS (ENTERED AT PREVIOUS TIME IN EMR) Penicillins (Verified Allergy, Unknown, HIVES, 12/09/17) Current Inpatient Medications Current Inpatient Medications Medications (Trade) Dose Ordered Sig/Dee Route Start Time Stop Time Status Last Admin Dose Admin Ropivacaine 150 mg/Bupivacaine HCl 30 ml/ Epinephrine HCl 0.15 mg/Ketorolac Tromethamine 30 mg/Dexamethasone Sodium Phosphate 4 mg/Ketamine HCl 10 mg/Clonidine 100 mcg/Sodium Chloride 93.35 ml @ 0 mls/hr PREOP INFIL 12/11/17 06:00 12/11/17 18:00 Cefazolin Sodium 15 ml @ 3.75 mls/ min PREOP IV 12/09/17 06:00 12/09/17 18:00 12/09/17 07:25 3.75 MLS/MIN Acetaminophen (Tylenol Tab) 1,000 mg PREOP PO 12/09/17 06:00 12/09/17 18:00 12/09/17 06:11 1,000 MG Celecoxib (CeleBREX CAP) 200 mg PREOP PO 12/09/17 06:00 12/09/17 18:00 12/09/17 06:12 200 MG Dexamethasone (Decadron Tab) 8 mg PREOP PO 12/09/17 06:00 12/09/17 18:00 12/09/17 06:11 8 MG Famotidine (Pepcid Tab) 20 mg PREOP PO 12/09/17 06:00 12/09/17 18:00 12/09/17 06:12 20 MG Miscellaneous (Remove Transderm-Scop Patch) 1 ea Q72H N/A 12/12/17 06:00 12/12/17 06:01 Miscellaneous Information (Check Scopolamine Patch Placement) 1 ea QS N/A 12/09/17 16:00 12/12/17 05:59 Tramadol HCl (Ultram Tab) 50 mg PREOP PO 12/09/17 06:00 12/09/17 18:00 12/09/17 06:10 50 MG Lactated Ringer's 1,000 ml @ 60 mls/hr [id number] IV 12/09/17 06:00 12/09/17 22:39 Lactated Ringer's 1,000 ml @ 15 mls/hr Q24H IV 12/09/17 06:00 12/10/17 05:59 Labetalol HCl (Normodyne Tab) 200 mg BID PO 12/09/17 21:00 01/08/18 20:59 Lisinopril (Zestril Tab) 2.5 mg QAM PO 12/10/17 09:00 01/09/18 08:59 Future Hold Vitamin B Complex (Vitamin B Complex) 1 tab QAM PO 12/10/17 09:00 01/09/18 08:59 Cholecalciferol (Vitamin D Tab) 2,000 inter.unit QAM PO 12/10/17 09:00 01/09/18 08:59 Cyanocobalamin (Vitamin B-12 Tab) 1,000 mcg QAM PO 12/10/17 09:00 01/09/18 08:59 Fluticasone Propionate (Flonase Nasal Plover) 1 sprays PRN PRN NA 12/09/17 09:30 01/08/18 09:29 Pravastatin Sodium (Pravachol Tab) 80 mg QPM PO 12/09/17 21:00 01/08/18 20:59 Miscellaneous Information (Order Awaiting Action) 1 ea QS N/A 12/09/17 16:00 01/08/18 15:59 Miscellaneous Information (Order Awaiting Action) 1 ea QS N/A 12/09/17 16:00 01/08/18 15:59 Warfarin Sodium (Coumadin Tab) 5 mg DAILY@1600 PO 12/10/17 16:00 01/09/18 15:59 Sodium Chloride 1,000 ml @ 100 mls/hr Q10H IV 12/09/17 09:30 12/10/17 09:29 Cefazolin Sodium 2000 mg/Syringe 15 ml @ 3.75 mls/ min Q8H IV 12/09/17 16:00 12/10/17 00:03 Celecoxib (CeleBREX CAP) 200 mg BID PO 12/09/17 21:00 01/08/18 20:59 Oxycodone HCl (Roxicodone Immediate Rel Tab) 1 TABLET FOR PAIN RATING... Q4H PRN PO 12/09/17 09:30 12/23/17 09:29 Morphine Sulfate (MoRPHine SULFATE INJ) Pain scale 0-5 give 2 mg P... Q4 PRN IV 12/09/17 09:30 12/23/17 09:29 Acetaminophen (Tylenol Tab) 1,000 mg Q8H PO 12/09/17 14:00 01/08/18 09:29 12/09/17 14:09 1,000 MG Magnesium Hydroxide (Milk Of Magnesia Susp) 30 ml Q6H PRN PO 12/09/17 09:30 01/08/18 09:29 Senna (Senokot Tab) 17.2 mg HS PO 12/09/17 21:00 01/08/18 20:59 Docusate Sodium (coLACE CAP) 100 mg BID PO 12/09/17 21:00 01/08/18 20:59 Diphenhydramine HCl (Benadryl Inj) 25 mg Q8H PRN IV 12/09/17 09:30 01/08/18 09:29 Al Hydrox/Mg Hydrox/Simethicone (Maalox Max Susp) 15 ml Q4H PRN PO 12/09/17 09:30 01/08/18 09:29 Multivitamins (Multivitamin Tab) 1 tab QAM PO 12/10/17 09:00 01/09/18 08:59 Ondansetron HCl (Zofran Inj) 4 mg Q6H PRN IV 12/09/17 09:30 01/08/18 09:29 Metoclopramide HCl (Reglan Inj) 10 mg Q6H PRN IV 12/09/17 09:30 01/08/18 09:29 Ferrous Gluconate (Ferrous Gluconate Tab) 324 mg TIDM PO 12/09/17 12:30 01/08/18 12:29 12/09/17 14:10 324 MG Pantoprazole Sodium (Protonix Tab) 40 mg QAM PO 12/10/17 09:00 12/13/17 09:01 Dexamethasone Sodium Phosphate 10 mg/Syringe 2.5 ml @ 1 mls/min 0730 IV 12/10/17 07:30 12/10/17 07:33 Warfarin Sodium (Coumadin Tab) 10 mg QPM ONCE PO 12/09/17 21:00 12/09/17 21:01 Enoxaparin Sodium (Lovenox Inj) 40 mg QAM SQ 12/10/17 09:00 01/09/18 08:59 UNV Glucose (Glucose 40% Gel) 15-30 GRAMS 15 GRAMS... UD PRN PO 12/09/17 16:15 01/08/18 16:14 UNV Glucose (Glucose Chew Tab) 4-8 Tablets 4 Tabl... UD PRN PO 12/09/17 16:15 01/08/18 16:14 UNV Dextrose (Dextrose 50% 50ML Syringe) 25-50ML 25ML FOR ... UD PRN IV 12/09/17 16:15 01/08/18 16:14 UNV Glucagon (Glucagon Inj) 1 mg UD PRN SQ 12/09/17 16:15 01/08/18 16:14 UNV Carbohydrates (Carbohydrates For Hypoglycemia) 15-30 GRAMS 15 grams if BSG 54-69... UD PRN PO 12/09/17 16:15 01/08/18 16:14 UNV Insulin Aspart (novoLOG ASPART) SLIDING SCALE G... ACHS SC 12/09/17 17:15 01/08/18 17:14 UNV Hydralazine HCl (HydrALAZINE INJ) 10 mg Q6H PRN IV. 12/09/17 16:15 01/08/18 16:14 UNV Review of Systems See HPI for pertinent positives and negatives. All other systems reviewed and negative. Physical Exam Date Time Temp Pulse Resp B/P (MAP) Pulse Ox O2 Delivery O2 Flow Rate FiO2 12/09/17 16:07 37.0 71 18 130/81 (97) 95 Room Air 12/09/17 13:53 36.8 81 15 117/71 (86) Nasal Cannula 12/09/17 12:34 36.4 77 19 120/73 (89) 98 Nasal Cannula 2.0 12/09/17 11:15 36.9 65 17 129/83 (98) 97 Nasal Cannula 2.0 12/09/17 10:45 97 Nasal Cannula 2.0 12/09/17 10:45 97 Nasal Cannula 2.0 12/09/17 10:35 72 16 154/72 97 Nasal Cannula 2 12/09/17 10:25 36.3 62 15 138/73 97 Nasal Cannula 2 12/09/17 10:15 63 13 146/75 97 Nasal Cannula 2 12/09/17 10:05 73 19 126/83 96 Nasal Cannula 2 12/09/17 09:55 66 15 139/80 96 Nasal Cannula 2 12/09/17 09:45 67 14 153/83 96 Nasal Cannula 2 12/09/17 09:35 80 17 144/100 97 Nasal Cannula 2 12/09/17 09:25 36.2 76 12 144/83 95 Nasal Cannula 2 12/09/17 05:47 37.0 84 18 151/83 94 Room Air Laboratory Results Last 24 Hours Test 12/09/17 05:40 12/09/17 05:43 12/09/17 09:29 12/09/17 11:45 Prothrombin Time 14.0 SECONDS Prothromb Time International Ratio 1.3 Activated Partial Thromboplast Time 30.0 SECONDS Partial Thromboplastin Ratio 1.2 Bedside Glucose 140 mg/dl 173 mg/dl 200 mg/dl Assessment & Plan 77 y/o female with a history of HTN, HLD, DM II, h/o unprovoked PE, CKD stage III, and uterine cancer s/p radiation and then total hysterectomy who presents s /p right TKA with Dr. Merrill on 12/09 for medical management. S/p right TKA--POD #0 -Pain management, DVT prophylaxis, PT/OT as per primary team H/o unprovoked PE on lifelong anticoagulation (warfarin) -Pt follows w/pulmonology for this, they provided a Lovenox bridging schedule for pre and postop, this is in chart -Spoke with orthopedics. Pt to be given warfarin 10 mg PO x 1 tonight w/o Lovenox. Lovenox then started at 40 mg daily for over the weekend and pt's home warfarin dosing resumed. INR checked on Wednesday, and additional Lovenox will be given if still subtherapeutic -Pt normally takes warfarin 2.5 mg Wednesday/Wednesday and 5 mg rest of the week, however will receive 5 mg tomorrow -INR 1.3 on 12/09 HTN, HLD--stable -Hold lisinopril until renal function checked/stable -Continue labetalol 200 mg PO BID, hold for HR less than 60 or SBP less than 100 -Continue pravastatin 80 mg PO qd -Cover with hydralazine 10 mg IV q6h prn SBP >180 DM II--last HgbA1c 6.0 on 11/17/17 -Hold glimepiride and Janumet -Insulin sliding scale -Check BSGs q ac and qhs CKD stage III--stable H/o uterine cancer--noted Code Status -Level I, FULL RESUSCITATION STATUS Thank you for this consultation. We will continue to follow.
[2017-12-09] MEDS: CEFAZOLIN IV 2,000 MG in SYRINGE 0 ML IV SCH ×2 (16:48→23:39)
[2017-12-09] MEDS: INSULIN ASPART 100 UNITS/ML 3 ML PEN SC SCH ×2 (19:54→21:58)
[2017-12-09] MEDS ORDERED: COENZYME Q10 PO SCH (21:00)
[2017-12-09] MEDS ORDERED: SENNA 8.6 MG TAB PO SCH (21:00)
[2017-12-09] MEDS: LABETALOL HCL 200 MG TAB PO SCH (21:00)
[2017-12-09] MEDS ORDERED: PRAVASTATIN SOD 40 MG TAB PO SCH (21:00)
[2017-12-09] MEDS: DOCUSATE SODIUM 100 MG CAP PO SCH (21:49)
[2017-12-09] MEDS: CeleBREX 200 MG CAP PO SCH (21:49)
[2017-12-09] MEDS ORDERED: INSULIN ASPART 100 UNITS/ML 3 ML PEN SC STA (23:27)
[2017-12-10] MEDS: SODIUM CHLORIDE 0.9% 1000ML 1,000 ML IV SCH (03:27)
[2017-12-10 03:38] VITALS: BP 133/73; PULSE 78; TEMP 36.7; O2SAT 96
[2017-12-10] MEDS: ACETAMINOPHEN 500 MG TAB PO SCH (05:33)
[2017-12-10 06:11] LABS: HEMATOCRIT 27.3 % (37-47); MEAN CELL VOLUME 94.5 fL (80-100); MEAN CORPUSCULAR HEMOGLOBIN 31.1 pg (25-34); MEAN PLATELET VOLUME 10.6 fL (7.4-10.4); PLATELET COUNT 105 K/uL (130-400); RED CELL DISTRIBUTION WIDTH CV 13.5 % (11.5-14.5); RED CELL DISTRIBUTION WIDTH SD 47.1 fL (36.4-46.3); WHITE BLOOD COUNT 8.44 K/uL (4.8-10.8)
[2017-12-10 06:17] LABS: INR 1.2 (0.9-1.1)
[2017-12-10 06:41] LABS: CALCIUM 8.3 mg/dl (8.5-10.1); CREATININE 1.05 mg/dl (0.60-1.20); POTASSIUM 4.8 mmol/L (3.5-5.1)
[2017-12-10] MEDS ORDERED: DEXAMETHASONE INJ 10 MG in SYRINGE 0 ML IV SCH (07:30)
[2017-12-10 07:40] VITALS: BP 149/79; PULSE 83; TEMP 36.5; O2SAT 95
[2017-12-10] MEDS: CHECK SCOPOLAMINE PATCH PLACEMENT SCH (07:54)
[2017-12-10] MEDS: FERROUS GLUCONATE 324 MG TAB PO SCH (07:59)
[2017-12-10] MEDS: DOCUSATE SODIUM 100 MG CAP PO SCH (08:16)
[2017-12-10] MEDS: LABETALOL HCL 200 MG TAB PO SCH (08:18)
[2017-12-10] MEDS: CeleBREX 200 MG CAP PO SCH (08:18)
[2017-12-10] MEDS: INSULIN ASPART 100 UNITS/ML 3 ML PEN SC SCH (08:24)
[2017-12-10] MEDS ORDERED: PANTOprazole SOD 40 MG TAB PO SCH (09:00)
[2017-12-10] MEDS ORDERED: GLIMEPIRIDE 2 MG TAB PO SCH (09:00)
[2017-12-10] MEDS ORDERED: MULTIVITAMIN TAB PO SCH (09:00)
[2017-12-10] MEDS ORDERED: VITAMIN B COMPLEX TAB PO SCH (09:00)
[2017-12-10] MEDS ORDERED: CHOLECALCIFEROL 1000 INTER.UNIT TAB PO SCH (09:00)
[2017-12-10] MEDS ORDERED: CeleBREX 200 MG CAP PO SCH (09:00)
[2017-12-10] MEDS ORDERED: ENOXAPARIN 40 MG/0.4 ML SYR SQ SCH (09:00)
[2017-12-10] MEDS ORDERED: LISINOPRIL 2.5 MG TAB PO SCH (09:00)
[2017-12-10] MEDS ORDERED: CYANOCOBALAMIN 500 MCG TAB (VIT B-12) PO SCH (09:00)
--- NOTE | 2017-12-10 09:14 | Orthopedic Progress Note ---
Orthopedic Progress Note Date of Service Dec 10, 2017. Subjective Post OP Day: 1 Reports: feeling well, pain controlled w PO medications, Denies: complaints, chest pain, SOB, nausea / vomiting, light headedness, calf pain, using [employer] Additional Notes: only required tylenol for pain since her surgery yesterday Objective calves soft nontender, N/V intact, capillary refill less than 2 sec., A&O x3, toes mobile, CMS intact patient sitting in recliner. in regular clothes. having breakfast. silverlone dressing soaked with blood thru to the bassam. upon removal incision itself intact with no active drainage. Date Time Temp Pulse Resp B/P (MAP) Pulse Ox O2 Delivery O2 Flow Rate FiO2 12/10/17 08:11 Room Air 12/10/17 07:40 36.5 83 18 149/79 (102) 95 Room Air 12/10/17 03:38 36.7 78 16 133/73 (93) 96 Room Air 12/09/17 23:40 Room Air 12/09/17 22:55 36.5 75 16 129/72 (91) 97 Room Air 12/09/17 20:26 37.0 71 17 123/73 (90) 94 Room Air 12/09/17 16:07 37.0 71 18 130/81 (97) 95 Room Air 12/09/17 15:30 Room Air 12/09/17 13:53 36.8 81 15 117/71 (86) Nasal Cannula 12/09/17 12:34 36.4 77 19 120/73 (89) 98 Nasal Cannula 2.0 12/09/17 11:15 36.9 65 17 129/83 (98) 97 Nasal Cannula 2.0 12/09/17 10:45 97 Nasal Cannula 2.0 12/09/17 10:45 97 Nasal Cannula 2.0 12/09/17 10:35 72 16 154/72 97 Nasal Cannula 2 12/09/17 10:25 36.3 62 15 138/73 97 Nasal Cannula 2 12/09/17 10:15 63 13 146/75 97 Nasal Cannula 2 12/09/17 10:05 73 19 126/83 96 Nasal Cannula 2 12/09/17 09:55 66 15 139/80 96 Nasal Cannula 2 12/09/17 09:45 67 14 153/83 96 Nasal Cannula 2 12/09/17 09:35 80 17 144/100 97 Nasal Cannula 2 12/09/17 09:25 36.2 76 12 144/83 95 Nasal Cannula 2 Laboratory Results 24 Hours: Test 12/10/17 05:51 Hematocrit 27.3 % Hemoglobin 9.0 g/dL Prothromb Time International Ratio 1.2 Prothrombin Time 12.5 SECONDS Assessment & Plan Assessment: s/p rtkr pod 1 Plan: 1) dc to home today after am PT who came in upon me leaving 2) silverlone dressing changed. compression dressing applied to remain on for 24-48hrs. 3) [facility] ordered for home care 4) Lovenox 40mg SQ daily x 2 days and continue coumadin. patient does venapuncture at home biweekly. will call us and coumadin clinic on wednesday with INR. Aware we want INR bw 1.8 and 2.2 x 6wks post-op. [place] [facility]. 5) Patient to use immobilizer x 48hrs post-op. 6) Patient to cont regular celebrex dose, add tylenol otc for pain and will be rxd oxycodone for inc pain. use ice. 7) upon dc will be given rxs for lovenox, oxycodone, HH therapy. 8) FU appt scheduled for 12-24 with DJ at 12:45am. Discharge Planning Discharge Planning: home with home health Pain Management: Celebrex, PO Tylenol, Oxy IR DVT Prophylaxis: TEDs, Coumadin, Lovenox Therapy: Physical Therapy, Occupational Therapy
--- NOTE | 2017-12-10 10:28 | Hospitalist Progress Note ---
Hospitalist Progress Note Date of Service Dec 10, 2017. Subjective Pt evaluation today including: conversation w/ patient, physical exam, chart review, lab review, review of inpatient medication list Pain: Controlled PO Intake: Tolerating PO diet Voiding: no voiding problems Patient reports feeling well. She states her pain is well controlled. She does have some mild numbness in her right lower leg, but this continues to improve. She is tolerating a PO diet, voiding on her own, and passing gas. She has not yet moving her bowels. The patient denies fevers, chills, sweats, chest pain, palpitations, claudication, cough, wheezing, shortness of breath, nausea, vomiting, abdominal pain, dysuria, hematuria, urinary retention, paralysis, weakness. Additional Comments: See HPI for pertinent positives and negatives. All other systems reviewed and negative. Objective Vital Signs Date Time Temp Pulse Resp B/P (MAP) Pulse Ox O2 Delivery O2 Flow Rate FiO2 12/10/17 09:38 36.5 83 18 95 Room Air 12/10/17 08:11 Room Air 12/10/17 07:40 36.5 83 18 149/79 (102) 95 Room Air 12/10/17 03:38 36.7 78 16 133/73 (93) 96 Room Air 12/09/17 23:40 Room Air 12/09/17 22:55 36.5 75 16 129/72 (91) 97 Room Air 12/09/17 20:26 37.0 71 17 123/73 (90) 94 Room Air 12/09/17 16:07 37.0 71 18 130/81 (97) 95 Room Air 12/09/17 15:30 Room Air 12/09/17 13:53 36.8 81 15 117/71 (86) Nasal Cannula 12/09/17 12:34 36.4 77 19 120/73 (89) 98 Nasal Cannula 2.0 12/09/17 11:15 36.9 65 17 129/83 (98) 97 Nasal Cannula 2.0 12/09/17 10:45 97 Nasal Cannula 2.0 12/09/17 10:45 97 Nasal Cannula 2.0 12/09/17 10:35 72 16 154/72 97 Nasal Cannula 2 12/09/17 10:25 36.3 62 15 138/73 97 Nasal Cannula 2 Physical Exam Notes: General appearance: +Obese. Well-developed, well-nourished, no apparent distress Head: Normocephalic, atraumatic Eyes: Normal inspection, PERRL, EOMI ENT: Normal ENT inspection, hearing grossly normal, pharynx normal Neck: Supple, no JVD, trachea midline Respiratory/Chest: Lungs clear to auscultation, normal breath sounds, no respiratory distress Cardiovascular: Regular rate & rhythm, no gallop, no murmur Abdomen/GI: Normal bowel sounds, non-tender, soft Extremities/Musculoskeletal: +Right knee dressing c/d/i. Normal inspection, no calf tenderness, no pedal edema Neurological/Psych: +Diminished sensation RLE. Alert, normal mood/affect, oriented x 3 Skin: Normal color, warm/dry, no rash Laboratory Results Last 24 Hours Test 12/09/17 11:45 12/09/17 17:13 12/09/17 21:25 12/09/17 23:37 Bedside Glucose 200 mg/dl 296 mg/dl 265 mg/dl 276 mg/dl Test 12/10/17 03:41 12/10/17 05:51 12/10/17 08:14 Bedside Glucose 216 mg/dl 227 mg/dl White Blood Count 8.44 K/uL Red Blood Count 2.89 M/uL Hemoglobin 9.0 g/dL Hematocrit 27.3 % Mean Corpuscular Volume 94.5 fL Mean Corpuscular Hemoglobin 31.1 pg Mean Corpuscular Hemoglobin Concent 33.0 g/dl RDW Standard Deviation 47.1 fL RDW Coefficient of Variation 13.5 % Platelet Count 105 K/uL Mean Platelet Volume 10.6 fL Prothrombin Time 12.5 SECONDS Prothromb Time International Ratio 1.2 Sodium Level 139 mmol/L Potassium Level 4.8 mmol/L Chloride Level 107 mmol/L Carbon Dioxide Level 23 mmol/L Anion Gap 9.0 mmol/L Blood Urea Nitrogen 22 mg/dl Creatinine 1.05 mg/dl Est Creatinine Clear Calc Drug Dose 52.5 ml/min Estimated GFR () 59.3 Estimated GFR (Non- 51.2 BUN/Creatinine Ratio 20.5 Random Glucose 216 mg/dl Calcium Level 8.3 mg/dl Assessment and Plan 77 y/o female with a history of HTN, HLD, DM II, h/o unprovoked PE, CKD stage III, and uterine cancer s/p radiation and then total hysterectomy who presents s /p right TKA with Dr. Merrill on 12/09 for medical management. S/p right TKA--POD #1 -Pain management, DVT prophylaxis, PT/OT as per primary team H/o unprovoked PE on lifelong anticoagulation (warfarin) -Pt follows w/pulmonology for this, they provided a Lovenox bridging schedule for pre and postop, this is in chart -Pt to be given warfarin 10 mg PO x 1 on POD #0 w/o Lovenox. Lovenox then started at 40 mg daily for over the weekend and pt's home warfarin dosing resumed. INR checked on Wednesday, and additional Lovenox will be given if still subtherapeutic -Ortho provided script for Lovenox over the weekend and INR checks, results to be fax[facility] to [facility] -Pt normally takes warfarin 2.5 mg Wednesday/Wednesday and 5 mg rest of the week -INR 1.2 on 12/10 HTN, HLD--stable -Renal function stable, resume lisinopril 2.5 mg PO qd -Continue labetalol 200 mg PO BID, hold for HR less than 60 or SBP less than 100 -Continue pravastatin 80 mg PO qd -Cover with hydralazine 10 mg IV q6h prn SBP >180 DM II--last HgbA1c 6.0 on 11/17/17 -BSGs remain elevated in 200s, likely due to Decadron plus stress of surgery and pain. Pt normally has good control w/A1c of 6, expect this to resolve. Ok to discharge w/normal home meds -Hold glimepiride and Janumet while in patient, resume at discharge -Insulin sliding scale -Check BSGs q ac and qhs CKD stage III--stable H/o uterine cancer--noted Code Status -Level I, FULL RESUSCITATION STATUS Pt. is stable from a medical standpoint, we will sign off. Clear for discharge as per primary team.
[2017-12-10 10:40] VITALS: BP 146/82; PULSE 63; TEMP 37.1; O2SAT 94
[2017-12-10] MEDS ORDERED: WARFARIN SOD 5 MG TAB PO SCH (16:00)
[2017-12-11] MEDS ORDERED: ROPIVACAINE 5MG/ML 30 ML 150 MG, BUPIVACAINE 0.5% MPF INJ 30 ML, EpINEphrine HCL INJ 0.... INFIL SCH ×8 (06:00)
--- NOTE | 2017-12-13 09:01 | Discharge Summary ---
Discharge Summary Date of Service Dec 10, 2017. 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 CKD stage III Uterine cancer s/p radiation, total hysterectomy Surgical history: Total hysterectomy Hernia repair Procedures: S/P Right Total Knee Replacement Consultations: Hospitalist for medical management Medication Reconciliation New Medications: Enoxaparin (Lovenox) 40 Mg/0.4 Ml Inj 40 MG SQ DAILY, #2 SYR Oxycodone HCl (Oxycodone HCl) 5 Mg Tab 5 MG PO q4-6 PRN for Pain, #24 TABS Continued Medications: Ascorbic Acid (Vitamin C) Unknown Strength Tab Unknown Dose PO QAM Celecoxib (CeleBREX) 200 Mg Cap 1 CAP PO QAM for 30 Days, #30 CAP Cholecalciferol (Vitamin D3) 2,000 Unit Cap 1 CAP PO QAM for 90 Days, #90 CAP 3 Refills Coenzyme Q10 (Ubidecarenone) (Co Q10) 30 Mg Cap 1 MG PO QPM, CAP Cyanocobalamin (Vitamin B12) 1,000 Mcg Tab 1 TAB PO QAM Glimepiride (Glimepiride) 2 Mg Tab 1 TAB PO QAM Labetalol (Normodyne) 200 Mg Tab 200 MG PO BID, 0 Refills Lisinopril (Lisinopril) 2.5 Mg Tab 1 TAB PO QAM Mometasone Furoate (Nasal) (Mometasone Furoate) 50 Mcg/Act Spr 1 DOSE NA UD PRN for Nasal Congestion Pravastatin Sodium (Pravastatin Sodium) 80 Mg Tab 80 MG PO QPM for 90 Days, TAB 3 Refills Saccharomyces Boulardii (Probiotic) Unknown Strength Cap Unknown Dose PO QAM Sitagliptin-Metformin Hcl (Janumet) 1 Tab Tab 1 TAB PO BID for 90 Days, #180 TAB 3 Refills Vitamin B Complex (Vitamin B Complex) 1 Tab Tab 1 TAB PO QAM PT REPORTS THIS IS A GUMMY Warfarin Sod (Coumadin) 2.5 Mg Tab 1 TAB PO 2XWK, TAB MON AND FRI - EVENING Warfarin Sodium (Warfarin Sodium) 5 Mg Tab 1 TAB PO 5XWK for 90 Days, TAB 3 Refills SUN, TUES, WED, THUR, SAT - EVENING [Fiber Gummy] () 1 DOSE PO QAM Hospital Course Patient was admitted to the hospital after having a R TKR by Dr Merrill on . Surgery without complication. No issues with anesthesia. Tolerated PO med, fluids, and diabetic diet. Seen by hospitalist for medical management. BSGs were elevated during hospital stay in 200s. Per medicine likely due to decafron plus stress of surgery and pain. Per medicine expected to resolve. Patient was controlled in hospital with insulin sliding scale with PO meds on hold while in hospital. Patient on chronic warfarin for hx of PE. Post-op bridged with lovenox and coumadin. On POD 1 patient had PT and walked with walker and immobilizer. Her incision was saturated and a new silverlone was applied followed by a compression dressing. Patient was discharged to home on POD 1. She was instructed to use knee immobilizer for 48hrs post-op with ambulation with walker. To keep compression dressing on for 24-48hrs. After which can remove down to silverlone. Keep this on until follow-up. Advised to call if becomes saturated again. Patient discharged on her regular coumadin dose as well as lovenox 40mg SQ x 2 days. To check INR on wednesday. Aware for 6wks post-op INR should be bw 1.8 and 2.2. Patient to go home with home health physical therapy. Patient given script for oxycodone. Can continue celebrex. Can also take tylenol for pain. Has ice pack to use as well. Post-op appointment scheduled on 12-24 at 12:45pm. Total time spent on discharge = This includes examination of the patient, discharge planning, medication reconciliation, and communication with other providers. Discharge Instructions Post-operative Instructions Dear Patient and Family/Friends, Before you are discharged from the hospital, it is important to know what to expect when you get home after surgery. To that end, we have created this sheet of discharge instructions which covers many commonly asked questions. Make sure you go through this sheet in its entirety with your nurse before you are discharged. Please note that we will go over the specifics of your surgery and recovery when you return for your first post-operative visit. Sincerely, Dr. Merrill Pain Expect to be in a fair amount of pain after surgery. Remember, our goal is not to eliminate your pain, but to make it tolerable. It is a good idea to stay ahead of your pain by taking the medications you were prescribed once you get home. Typically, the pain starts improving 3-7 days after surgery. You should start weaning off the narcotic pain medication (oxycodone, hydrocodone, hydromorphone, morphine) as soon as your pain improves. Please call our office if your pain is not adequately controlled. Ice Ice your operative site at least 5 times a day for 15-30 minutes at a time. Make sure you have a thin cloth between the ice or cooling unit and your skin to prevent restrepo bite. This is especially important if you received a nerve block. Continue icing your operative site for the first 5-7 days after surgery , then as needed. Diet/Nausea/Vomiting Start by drinking clear liquids and eating crackers. If you can tolerate this, then you may resume your normal diet. If you feel nauseated or vomit, take Zofran/ondansetron (if prescribed). Please call our office if you have intractable nausea or vomiting, or, if after hours, you may go to the Emergency Room for help. Constipation Constipation is a common side effect of narcotic pain medication. If you have not had a bowel movement within 2 days after surgery, we recommend purchasing an over the counter laxative such as Milk of Magnesia, Dulcolax, or Miralax from a local pharmacy, and taking it as instructed. Call our clinic if any questions. Slings and Braces If you were placed in a sling or brace, it must be worn at all times, including sleep. You may remove your sling or brace for physical therapy, home exercises , and showering. The length of time you will be in your brace and range of motion restrictions depends on what surgery you had; these details will be reviewed at your first post-operative appointment. Nerve block The anesthesia team sometimes places a nerve block to help with post-operative pain control. This results in significant numbness and inability to move the extremity. The nerve block usually wears off in 8-12 hours, but sometimes can last up to 24 hours. Please call our office if you are still unable to move your extremity after 24 hours, unless you received a pain pump to take home. Nerve blocks typically wear off quickly, so start taking pain medication as soon as you start feeling soreness near your surgical site. Weight bearing and Range of Motion. Do not bear any weight through your operative extremity immediately after surgery. If you had upper extremity surgery, do not lift anything with that arm. If you are in a knee brace, keep it locked in place until your follow-up. We will discuss your weight bearing, range of motion, and lifting restrictions in detail at your first post-operative appointment. Continuous Passive Motion (CPM) Machine If you were prescribed a CPM machine, it will start after your first post- operative appointment, at which time we will give you instructions on the range of motion settings and duration of treatment Physical therapy You will be given a prescription for physical therapy or occupational therapy at your first post-operative appointment. Typically, patients start therapy within 1 week of surgery Wound care and showering We will inspect your wound at your first post-operative visit, and may do a dressing change at that time. Most patients will be in a water-proof dressing that is removed 14 days after surgery. It is normal to see some dried blood on the dressing. Do not remove your dressing, paper strips or sutures yourself unless you are given permission. Showering is allowed the day after surgery. Do not scrub or remove any dressings. The wound should not be submerged underwater (i.e. in a bathtub or pool) until 4 weeks after surgery MEY stockings If you were given white stockings, these are to be worn at all times except to shower (on both legs) for the first 2 weeks after surgery. Driving You may not drive while taking narcotic pain medication or while in a cast, splint, sling or brace. You, the patient, need to make the final determination about when you are safe to drive, however, the earliest you may consider driving after surgery is below: Hand/Wrist/Elbow Surgery: 3 days Shoulder Surgery: 2 weeks Hip,/Knee/Ankle Surgery: 4 weeks Fracture repair: 6 weeks Return to Work Your return to work depends on what surgery was done and what type of work you do. Please bring any paperwork your employer needs completed to your first post -operative visit. Also, bring a description of your job duties, as this helps us to understand what risks you may face at work. Travel Avoid long distance travel (greater than 1 hour) in airplanes and cars for the first 6 weeks after surgery. If you must travel, you need to have a Doppler ultrasound done before you travel to rule out a blood clot in your legs. Follow-up You should have a follow-up appointment already scheduled 1-2 days after surgery. If not, please contact our office to make this appointment before you leave the hospital. When to call the office It is normal to have swelling and bruising in the limb that was operated on. This will improve with time. It is also normal to have fevers for the first 2 days after surgery. Reasons you should call your doctor include: Uncontrolled pain; Nausea, vomiting, or constipation that does not improve with medication; Fevers over 101.5, chills, sweats; Drainage or bleeding from the wound; Foul odor; Spreading areas of redness; Any other concerns
== END 2017-12-10 11:27 | disposition home health service (06) | DRG 470 ==
LOC: C.ACU 05:17 → ENRESERV 09:46 → C.3E 09:47
PROVIDERS: ADMIT Orthopaedic Surgery; ATTEND Orthopaedic Surgery
PROC: 0SRC0J9 Replacement of Right Knee Joint with Synthetic Substitute, Cemented, Open Approach (ICD-10-PCS; principal; 2017-12-09 07:15)
DX: M17.11 Unilateral primary osteoarthritis, right knee (principal); E11.22 Type 2 diabetes mellitus with diabetic chronic kidney disease; E78.5 Hyperlipidemia, unspecified; J44.9 Chronic obstructive pulmonary disease, unspecified; I12.9 Hypertensive chronic kidney disease with stage 1 through stage 4 chronic kidney disease, or unspecified chronic kidney disease; N18.3 Chronic kidney disease, stage 3 (moderate); Z79.899 Other long term (current) drug therapy; Z79.84 Long term (current) use of oral hypoglycemic drugs; Z79.01 Long term (current) use of anticoagulants; Z86.711 Personal history of pulmonary embolism; Z87.891 Personal history of nicotine dependence; Z88.0 Allergy status to penicillin